=== PATIENT | male | born 1985 | race Caucasian/White ===

== ENCOUNTER 2016-09-15 17:13 | Emergency (ER) | payer OTHER ==
--- NOTE | 2016-09-15 17:39 | EDM.PDOC ---
ED HPI GENERAL MEDICAL PROBLEM - General Chief Complaint: General Stated Complaint: back pain 'felt pop' Time Seen by Provider: 09/15/16 17:25 Source of Information: Reports: Patient History Limitations: Reports: No Limitations - History of Present Illness INITIAL COMMENTS - FREE TEXT/NARRATIVE: Patient is a 31-year-old who was seen in the emergency room with chief complaint lower back pain that was radiating down the right leg into his calf he has increased pain in his calf at this time not so much in the lower back Onset: Sudden Onset Time: 15:45 Duration: Hour(s): Location: Reports: Lower Extremity, Right Quality: Reports: Stabbing Severity: Moderate Improves with: Reports: Immobilization Worsens with: Reports: Movement Context: Reports: Trauma Associated Symptoms: Reports: No Other Symptoms - Related Data Allergies Allergy/AdvReac Type Severity Reaction Status Date / Time No Known Allergies Allergy Verified 09/15/16 17:14 Home Meds: Home Meds Cyclobenzaprine [Flexeril] 10 mg PO TID PRN 09/15/16 [History] FLUoxetine [PROzac] 3 cap PO DAILY 09/15/16 [History] Lisinopril 20 mg PO DAILY 09/15/16 [History] Meloxicam [Meloxicam] 2 tab PO DAILY PRN 09/15/16 [History] Social & Family History - Tobacco Use Smoking Status *Q: Never Smoker Second Hand Smoke Exposure: Yes - Caffeine Use Caffeine Use: Reports: Energy Drinks Other Caffeine Use: [employer] energy drink 1 a day - Alcohol Use Days Per Week of Alcohol Use: 7 Number of Drinks Per Day: 2 Total Drinks Per Week: 14 Date of Last Drink: 09/14/16 - Recreational Drug Use Recreational Drug Use: No ED ROS GENERAL - Review of Systems Review Of Systems: See Below HEENT: Reports: No Symptoms Respiratory: Reports: No Symptoms Cardiovascular: Reports: No Symptoms Endocrine: Reports: No Symptoms GI/Abdominal: Reports: No Symptoms : Reports: No Symptoms ED EXAM, GENERAL - Physical Exam Exam: See Below Exam Limited By: No Limitations General Appearance: Alert, WD/WN, No Apparent Distress Ears: Normal External Exam, Normal Canal, Hearing Grossly Normal, Normal TMs Ear Exam: Bilateral Ear: Auricle Normal, Canal Normal, TM normal Nose: Normal Inspection, Normal Mucosa, No Blood Throat/Mouth: Normal Inspection, Normal Lips, Normal Teeth, Normal Gums, Normal Oropharynx, Normal Voice, No Airway Compromise Head: Atraumatic, Normocephalic Neck: Normal Inspection, Supple, Non-Tender, Full Range of Motion Respiratory/Chest: No Respiratory Distress, Lungs Clear, Normal Breath Sounds, No Accessory Muscle Use, Chest Non-Tender Cardiovascular: Normal Peripheral Pulses, Regular Rate, Rhythm, No Edema, No Gallop, No JVD, No Murmur, No Rub Peripheral Pulses: 1+: Carotid (L), Carotid (R), Brachial (R), Radial (R) GI/Abdominal: Normal Bowel Sounds, Soft, Non-Tender, No Organomegaly, No Distention, No Abnormal Bruit, No Mass Back Exam: Normal Inspection, Decreased Range of Motion, Paraspinal Tenderness Extremities: Normal Inspection, Normal Range of Motion, Leg Pain Neurological: Alert, Oriented, CN II-XII Intact, Normal Cognition, Normal Gait, Normal Reflexes, No Motor/Sensory Deficits Psychiatric: Normal Affect, Normal Mood Skin Exam: Warm, Dry, Intact, Normal Color, No Rash Course - Vital Signs Last Recorded V/S: Last Vital Signs Temp 98.1 F 09/15/16 17:13 Pulse 74 09/15/16 17:13 Resp 12 09/15/16 17:13 BP 146/90 H 09/15/16 17:13 Pulse Ox 100 09/15/16 17:13 - Orders/Labs/Meds Orders: Active Orders 24 hr Category Date Time Status Lumbar Spine 2 or 3V [CR] Stat Exams 09/15/16 17:32 Taken Meds: Medications Discontinued Medications Generic Name Dose Route Start Last Admin Trade Name Eric PRN Reason Stop Dose Admin Cyclobenzaprine HCl 10 mg 09/15/16 18:58 Flexeril PO 09/15/16 18:59 ONETIME ONE Morphine Sulfate 4 mg 09/15/16 18:11 09/15/16 18:16 Morphine IM 09/15/16 18:12 4 mg ONETIME ONE Administration Departure - Departure Time of Disposition: 18:45 Disposition: Home, Self-Care 01 Condition: Fair Clinical Impression: Muscle spasm of right lower extremity - Discharge Information Referrals: Jessica Diallo PA-C [Primary Care Provider] - Forms: ED Department Discharge Care Plan Goals: At this time we'll send patient home on Flexeril 10 mg 3 times a day plus Toradol 10 mg by mouth for 5 days patient is to return to the clinic and see primary if not better - My Orders Last 24 Hours: My Active Orders 09/15/16 17:32 Lumbar Spine 2 or 3V [CR] Stat - Assessment/Plan Last 24 Hours: My Active Orders 09/15/16 17:32 Lumbar Spine 2 or 3V [CR] Stat
[2016-09-15] MEDS ORDERED: Morphine 4 MG/ML Syringe IM ONE (18:11)
[2016-09-15] MEDS ORDERED: Cyclobenzaprine 10 MG Tab PO ONE (18:58)
== END 2016-09-15 20:15 | disposition home or self-care (01) ==
LOC: LL.ED 17:13
DX: M62.831 Muscle spasm of calf (principal); M54.5 Low back pain; Z79.899 Other long term (current) drug therapy
CPT/HCPCS: 72100; 96372; 99284; A9270; J2270